=== PATIENT | female | born 1935 | race Caucasian/White ===

== ENCOUNTER 2017-05-08 12:37 | Outpatient (CLI) | payer OTHER, MEDICAID ==
[~2017-05-08 12:37] MED LIST: ASPI-1077 PO; OMEP20TA20 PO; PLE5 PO; PRAV40TA63 PO; RANI300T7 PO; TOPXL100 PO
== END 2017-05-08 18:27 | disposition home or self-care (01) ==
LOC: SMA 12:37
PROVIDERS: ATTEND Family Medicine
DX: Z12.31 Encounter for screening mammogram for malignant neoplasm of breast (principal)
CPT/HCPCS: G0202